=== PATIENT | male | born 1955 | race Caucasian/White ===

== ENCOUNTER 2016-10-12 12:51 | Emergency (ER) | payer BC ==
[~2016-10-12] VITALS: Ht 177.8 cm; Wt 97.0 kg
[~2016-10-12 12:51] MED LIST: FLM4 PO; METH4PAK4 PO; VALA1TAB PO
[2016-10-12 12:55] VITALS: TEMP 36.7; Ht 177.8 cm; Wt 97.0 kg
[2016-10-12] MEDS ORDERED: CLR10 PO (13:00)
[2016-10-12] MEDS ORDERED: ASPI81TA28 PO (13:00)
[2016-10-12] MEDS ORDERED: FLUT0.15 NAE (13:00)
--- NOTE | 2016-10-12 13:25 | DIAGNOSTIC IMAGING REPORT ---
LEFT ELBOW MIN 3 VIEWS ROUTINE CLINICAL HISTORY: felt snap and pain with lifting, suspect tendon rupture COMPARISON: None. DISCUSSION: The bones and joint spaces appear intact. There is no evidence of fracture, dislocation or bony disease. There is no evidence for soft tissue swelling. IMPRESSION: Negative study. Electronically signed by: Tomy George M.D. 10/12/2016 1:24 PM Dictated Date/Time: 10/12/2016 1:23 PM
[2016-10-12] MEDS ORDERED: HYDR-5688 PO (13:52)
--- NOTE | 2016-10-12 13:56 | EMERGENCY ROOM VISIT NOTE ---
ED Visit Note First contact with patient: 12:59 CHIEF COMPLAINT: Elbow pain HISTORY OF PRESENT ILLNESS: This 60-year-old male patient presents to the emergency department complaining of pain in the left elbow that came on suddenly today while he was lifting a heavy box. Patient states the box was heavier than he thought and started to fall he reached out to catch the box and felt a snap in his left elbow with immediate pain. The patient rates their pain as aching and 7/10. The patient has taken nothing for relief of the pain. The patient has not had previous fractures to this elbow. The patient does not have any numbness or tingling. The patient denies any other injuries. REVIEW OF SYSTEMS: A 6 system review of systems was completed with positives and pertinent negatives listed in the HPI. ALLERGIES: See chart MEDICATIONS: See chart PMH: See chart SOCIAL HISTORY: See chart PHYSICAL EXAM: Vital Signs: Reviewed Nurse's notes, vital signs stable. GENERAL : Pleasant and cooperative, in no acute distress, well-developed, well- nourished. SKIN: The skin was without rashes, erythema, edema, warmth, or bruising. Capillary reflex less than 3 seconds. MUSCULOSKELETAL: The patient is holding their elbow in a slightly flexed position. There is tenderness over the anterior and medial aspect of the left elbow. There is tenderness with flexion and extension of the left elbow. There is a palpable deformity and tenderness on the proximal biceps tendon. There is no tenderness of the shoulder , wrist, or hand. The patient is able to give a thumbs up, make an OK sign, and a #3 with their fingers. Radial pulse 2+. NEURO: Patient was alert and oriented to person place and time. Normal sensation to light and sharp touch. Normal associate professor of art strength, normal biceps and triceps strength, 5/5. IMAGING: LEFT ELBOW MIN 3 VIEWS ROUTINE CLINICAL HISTORY: felt snap and pain with lifting, suspect tendon rupture COMPARISON: None. DISCUSSION: The bones and joint spaces appear intact. There is no evidence of fracture, dislocation or bony disease. There is no evidence for soft tissue swelling. IMPRESSION: Negative study. EMERGENCY DEPARTMENT COURSE: I examined the patient. An x-ray of the left elbow was reviewed myself and read by radiology and shows no acute abnormality. He is on history and physical exam, I suspect a distal biceps tendon rupture. The patient was placed in left arm sling under my direction and the position was satisfactory. Neurovascular status was rechecked and intact. The patient was discharged home in stable condition. Patient was instructed to follow up with orthopedics for further management Current/Historical Medications Scheduled Aspirin (Aspirin Ec), 81 MG PO DAILY Fluticasone Propionate (Nasal) (Flonase Allergy Relief), 2 SPRAYS TOMASZ QAM Loratadine (Claritin), 10 MG PO DAILY Scheduled PRN Hydrocodone/Acetaminophen 5MG/325MG (Sumerco 5MG/325MG), 1-2 TABLET PO Q6H PRN for Pain Allergies Coded Allergies: No Known Allergies (Unverified , ANAPHYLAXIS, 10/12/16) Vital Signs Date Time Temp Pulse Resp B/P (MAP) Pulse Ox O2 Delivery O2 Flow Rate FiO2 10/12/16 14:22 67 18 127/82 99 10/12/16 12:55 36.7 57 16 134/79 97 Room Air Departure Information Impression Primary Impression: Rupture of left distal biceps tendon Dispostion Home / Self-Care Condition GOOD Prescriptions Hydrocodone/Acetaminophen 5MG/325MG (Sumerco 5MG/325MG) Tab 1-2 TABLET PO Q6H Y for Pain for 3 Days, #24 TAB For Initial Treatment Prov: Ameena Burns, AUTO SERVICER 10/12/16 Referrals Ayanna Oscar D.O. (PCP) Loi Ayala D.O. Patient Instructions Biceps Tendonitis Distal, My [facility] Additional Instructions You have been treated in the Emergency Department for Elbow Pain. It is suspected that you have a partial tear or rupture of your biceps tendon. You have been prescribed Sumerco to be used for pain control. This is a narcotic medication. You cannot drive or consume alcohol while on this medicine. This medicine should only be used for severe pain that cannot be controlled with over -the-counter pain medicines. For pain control, you can use the following bobl-nbv-vypiuvl medicines (if >12 yo): - Regular strength (325mg/tab) Tylenol (acetaminophen) 2 tabs every 4-6 hours as needed. Do not exceed 10 tablets in a 24 hour period. Avoid taking more than 3 grams (3000 mg) of Tylenol per day. This includes any other sources of acetaminophen you may take on a regular basis. - Regular strength (200 mg/tab) Advil (ibuprofen) 1-2 tabs every 4-6 hours as needed. Do not exceed a dose of 3200 mg per day. If this is a recent injury (<24 hrs), ice can be applied to the area of pain for the first 3 days to help decrease pain and inflammation. You have been provided the number for your Orthopaedic Surgeon. You should call this number as soon as possible to establish a follow-up visit from today's Emergency Department visit. Wear the sling as needed for comfort. You may remove the sling for bathing and sleep, and to do general range of motion exercises to keep the should from getting stiff. Return to the Emergency Department if your current symptoms worsen despite treatment course outlined above, or if you develop any of the following symptoms : intractable pain despite above treatment course or new onset of numbness or tingling of the arm. Problem Qualifiers Primary Impression: Rupture of left distal biceps tendon Encounter type: initial encounter Qualified Codes: S46.212A - Strain of muscle, fascia and tendon of other parts of biceps, left arm, initial encounter
[2016-10-12 14:22] VITALS: BP 127/82; PULSE 67; O2SAT 99
[2016-10-17] MEDS ORDERED: OXYC-57 PO (12:33)
== END 2016-10-12 14:22 | disposition home or self-care (01) ==
LOC: C.EDB 12:52 → C.EDD 14:22
DX: S46.212A Strain of muscle, fascia and tendon of other parts of biceps, left arm, initial encounter (principal); X50.1XXA Overexertion from prolonged static or awkward postures, initial encounter; Z79.82 Long term (current) use of aspirin; Z79.899 Other long term (current) drug therapy

== ENCOUNTER → 2016-10-14 | Outpatient (CLI) | payer BC ==
[~2016-10-14] MED LIST changes: +ASPI81TA28 PO; +CLR10 PO; -FLM4 PO; +FLUT0.15 NAE; +HYDR-5688 PO; -METH4PAK4 PO; +OXYC-57 PO; -VALA1TAB PO
[2016-10-14 13:03] LABS: BASO % 0.7 %; BASO ABS # 0.04 K/uL (0-0.2); COMPLETE YES; EOS % 3.8 %; HEMATOCRIT 42.4 % (42-52); IG% 0.2 %; LYMPH % 22.9 %; LYMPH ABS # 1.28 K/uL (1.2-3.4); MEAN CELL VOLUME 89.3 fL (80-100); MEAN CORPUSCULAR HEMOGLOBIN 30.5 pg (25-34); MEAN CORPUSCULAR HGB CONC 34.2 g/dl (32-36); MEAN PLATELET VOLUME 10.9 fL (7.4-10.4); MONO % 8.1 %; NEUT % 64.3 %; PLATELET COUNT 175 K/uL (130-400); RED BLOOD COUNT 4.75 M/uL (4.7-6.1); WHITE BLOOD COUNT 5.59 K/uL (4.8-10.8)
[2016-10-14 14:17] LABS: BLOOD UREA NITROGEN 17 mg/dl (7-18); BUN/CREATININE RATIO 17.5 (10-20); CALCIUM 8.5 mg/dl (8.5-10.1); CARBON DIOXIDE 29 mmol/L (21-32); CHLORIDE 109 mmol/L (98-107); CREATININE 0.98 mg/dl (0.60-1.40); GLUCOSE 80 mg/dl (70-99); POTASSIUM 4.2 mmol/L (3.5-5.1); SODIUM 144 mmol/L (136-145)
== END | disposition home or self-care (01) ==
LOC: C.LAB 12:01
PROVIDERS: ATTEND Orthopaedic Surgery
DX: S46.212A Strain of muscle, fascia and tendon of other parts of biceps, left arm, initial encounter (principal); X58.XXXA Exposure to other specified factors, initial encounter

== ENCOUNTER → 2016-10-17 | Day surgery (SDC) | payer BC ==
[2016-10-15 07:44] VITALS: Ht 177.8 cm; Wt 95.5 kg
[~2016-10-17] VITALS: Ht 177.8 cm; Wt 95.5 kg
[~2016-10-17] MED LIST changes: +ATROPINE SULFATE 0.1 MG/ML 5ML SYR IV PRN; +CEFAZOLIN 2000 MG/60 ML D5W IV SCH; +DEXAMETHASONE SOD INJ 4 MG/ML VIAL ONE; +FENTANYL CITRATE INJ 50 MCG/1 ML 2 ML VIAL ONE; -HYDR-5688 PO; +KETOROLAC TROMETHAMINE 30 MG/ML VIAL IV. PRN; +LABETALOL HCL IV 5 MG/ML 20ML IV PRN; +LACTATED RINGER'S 1000ML 1,000 ML IV SCH; +LIDOCAINE HCL 2% 2 ML VIAL (20MG/ML) ONE; +MIDAZOLAM HCL 1 MG/ML 2ML VIAL ONE; +ONDANSETRON INJ 2 MG/ML 2 ML VIAL IV PRN; +ONDANSETRON INJ 2 MG/ML 2 ML VIAL ONE; +OXYCODONE/ACETAMINOPHEN 5-325 TAB PO PRN; +PROPOFOL IV EMULSION 10 MG/ML 20 ML VIAL IV ONE; +SODIUM CHLORIDE 0.9% 1000ML 1,000 ML IV SCH
--- NOTE | 2016-10-17 09:39 | History & Physical Bridge - [place] ---
H&P Re-Evaluation Bridge Note: I have examined the patient, reviewed the History & Physical and in the interval since the performance of the History & Physical I have noted the following changes of clinical significance: No changes noted
[2016-10-17] MEDS: BUPIVACAINE/EPINEPHRINE 0.25% 1:200,000 30 ML VIAL ONE ×2 (12:06→12:10)
--- NOTE | 2016-10-17 12:36 | Discharge Instructions-SurgCtr ---
Discharge Instructions Date of Service Oct 17, 2016. Visit Reason for Visit: Left Distal Tendon Biceps Brachii Tear Discharge Discharge Diagnosis / Problem: SAME ABOVE Discharge Goals Goal(s): Decrease discomfort, Improve function Medications Stopped Medications Name(s): HELD ASPIRIN FOR TWO DAYS Restart Stopped Medication(s): MAY RESTART 10/17/2016 Activity Recommendations Activity Limitations: as noted below Lifting Limitations: until after follow-up appointment Exercise/Sports Limitations: until after follow-up appointment Driving or Machine Use: WHEN OFF OF PAIN MEDICATION AND CAN PUT 2 HANDS ON THE WHEEL Anesthesia . Post Anesthesia Instructions: If you have had General Anesthesia or IV Sedation: * Do not drive today. * Resume driving when surgeon permits. * Do not make important decisions or sign legal documents today. * Call surgeon for: 1. Temperature elevations greater than 101 degrees F. 2. Uncontrollable pain. 3. Excessive bleeding. 4. Persistent nausea and vomiting. 5. Medication intolerance (nausea, vomiting or rash). * For nausea and vomiting use only clear liquids such as: tea, soda, bouillon until nausea subsides, then gradually increase diet as tolerated. * If you have any concerns or questions, call your surgeon's office. If physician is unavailable and it is an emergency, call 911 or go to the nearest emergency room. . Instructions / Follow-Up Instructions / Follow-Up MEDICATIONS: * Resume previous medications unless instructed otherwise by your surgeon. * Always take pain medication on a full stomach or with food to avoid upset stomach. * Do not drink alcohol or drive while taking narcotics. * Ibuprofen or Tylenol may be taken if narcotic not needed. SPECIAL CARE INSTRUCTIONS: __ None _X_ Keep extremity elevated and iced x 48 hours; apply ice 20-30 minutes 8-10 times/day. May remove at night. __ Sling __24 hrs/day __ Remove at night __ Shoulder Immobilizer __ 24 hrs/day __ Remove at night _X_ Dressing __ Maintain until seen in office, may shower with plastic over site _X_ Remove dressings in 5 DAYS. MAY SHOWER SOONER IF COVERED WITH PLASTIC BAG _X_ Cover incisions with band-aids after showering __ Do not remove steri-strips Call physician if chills or temperature rises above 102 degrees or pain unrelieved by prescribed pain medications at . . Diet Recommendations Home Diet: no limitations Fluid Restriction: None Procedures Procedures Performed: Left Distal Biceps Tendon Repair Pending Studies Studies pending at discharge: no Work Instructions Return To Work: after follow-up Lifting Limitations: NO LIFTING WITH LEFT ARM Medical Emergencies . Who to Call and When: Medical Emergencies: If at any time you feel your situation is an emergency, please call 911 immediately. . Non-Emergent Contact Non-Emergency issues call your: Primary Care Provider Call Non-Emergent contact if: you have a fever, temperature is above 101.5 . . "Provider Documentation" section prepared by Jack Perez. .
[2016-10-17] MEDS: FENTANYL CITRATE INJ 50 MCG/1 ML 2 ML VIAL IV PRN ×2 (13:01→13:09)
[2016-10-17 13:45] VITALS: TEMP 36.1
[2016-10-17 14:04] VITALS: BP 114/73; O2SAT 97
--- NOTE | 2016-10-17 14:10 | Anesthesia Progress Nt - [facility] ---
Anesthesia Post Op Note Date & Time Oct 17, 2016 at 14:10 Vital Signs Pain Intensity: 0 Vital Signs Past 12 Hours Date Time Temp Pulse Resp B/P (MAP) Pulse Ox O2 Delivery O2 Flow Rate FiO2 10/17/16 14:04 54 16 114/73 (87) 97 Room Air 10/17/16 13:45 36.1 50 14 128/79 (95) 99 Room Air 10/17/16 13:28 53 24 97 10/17/16 13:28 52 24 10/17/16 13:25 128/74 10/17/16 13:25 36.4 51 20 128/74 97 Room Air 10/17/16 13:23 50 9 95 10/17/16 13:23 50 9 10/17/16 13:20 122/79 10/17/16 13:18 54 9 10/17/16 13:18 48 9 98 10/17/16 13:15 127/76 10/17/16 13:13 48 7 99 10/17/16 13:13 48 7 10/17/16 13:10 119/77 10/17/16 13:08 52 18 10/17/16 13:08 53 18 95 10/17/16 13:05 128/79 10/17/16 13:03 47 9 10/17/16 13:03 46 9 97 10/17/16 13:01 127/78 10/17/16 12:58 49 99 10/17/16 12:58 49 10/17/16 12:55 139/79 10/17/16 12:53 50 14 100 10/17/16 12:53 50 14 10/17/16 12:51 139/80 10/17/16 12:48 49 14 10/17/16 12:48 49 14 100 10/17/16 12:45 130/80 10/17/16 12:43 49 14 100 10/17/16 12:43 48 14 10/17/16 12:40 121/73 10/17/16 12:38 50 15 99 10/17/16 12:38 50 15 10/17/16 12:35 123/80 10/17/16 12:33 36.2 53 12 122/76 98 Diffusion Mask 6 10/17/16 12:33 67 122/76 97 10/17/16 12:33 67 10/17/16 09:36 36.8 56 102/62 (75) 94 Room Air Notes Mental Status: alert / awake / arousable, participated in evaluation Pt Amnestic to Procedure: Yes Nausea / Vomiting: adequately controlled Pain: adequately controlled Airway Patency, RR, SpO2: stable & adequate BP & HR: stable & adequate Hydration State: stable & adequate Anesthetic Complications: no major complications apparent
--- NOTE | 2016-10-17 15:39 | [facility] Post Operative Brief Note ---
Immediate Operative Summary Operative Date Oct 17, 2016. Pre-Operative Diagnosis Left Distal Biceps Tendon Rupture Post-Operative Diagnosis Same Procedure(s) Performed Left Distal Biceps Tendon Repair Surgeon Dr. Neil Padded Products Inspector Trimmer Surgeon(s) Aneesh Perez PA-C Estimated Blood Loss 20 mL Findings as above Specimens None Complication(s) None Disposition Recovery Room / PACU
--- NOTE | 2016-10-17 19:26 | OPERATIVE REPORT ---
DATE OF OPERATION: 10/17/2016 PREOPERATIVE DIAGNOSIS: Left distal biceps tendon rupture. POSTOPERATIVE DIAGNOSIS: Same. PROCEDURE: Open left distal biceps tenodesis. SURGEON: Dr. Luke Neil. MAPPING SPECIALIST: Todd Perez PA-C, whose assistance was necessary for positioning the arm and helping with instrumentation. ANESTHESIA: General. COMPLICATIONS: None. CONDITION: Stable to PACU. INDICATIONS: Loi is a pleasant 60-year-old male, who presented to my office with an acute traumatic rupture of his left distal biceps tendon. It was obvious by clinical examination. He elected to undergo an open biceps tenodesis. DESCRIPTION OF THE PROCEDURE: On 10/17/2016, he arrived at [facility] for the above procedure. He was seen in the preoperative holding area and the operative extremity was identified and signed. He was given a preoperative antibiotic, taken back to the operating room, laid on the table in supine position and put under general anesthesia. The left elbow was then prepped and draped in sterile fashion. Time-out was done. The patient and operative extremity was properly identified. A longitudinal incision was made between the flexor pronator mass and the brachioradialis. Dissection was taken down to the tuberosity with care not to disrupt any of the neurovascular structures. The tuberosity was easily identified. The distal biceps tendon was also easily identified and pulled directly out of the wound. The tendon was then whipstitched with an Arthrex fiber loop. The tendon measured to be 7 mm. A biceps pin was then placed in the center of the radial tuberosity and advanced to the posterior cortex. A 7.5 mm hole was drilled in the biceps tuberosity. An Arthrex biceps button was then attached to the tails of the fiber loop and passed out of the posterior cortex and flipped. A tension slide technique was then used to deliver the tendon into the 7.5 mm hole. A single 7 x 10 mm Bio-interference screw was then placed on the radial side which pushed the tendon ulnarly. The tails of the sutures were then tied. The wound was then irrigated. Hemostasis was controlled and the wound was then closed with 3-0 Vicryl suture and 4-0 nylon in a mattress fashion. He was placed in a soft dressing, extubated, transferred to a litter and taken to the postanesthesia care unit in stable condition. He tolerated the procedure well. I attest to the content of the Intraoperative Record and any orders documented therein. Any exception s are noted below.
== END | disposition home or self-care (01) ==
LOC: X.SURG 09:26
PROVIDERS: ATTEND Orthopaedic Surgery
DX: S46.202A Unspecified injury of muscle, fascia and tendon of other parts of biceps, left arm, initial encounter (principal); X58.XXXA Exposure to other specified factors, initial encounter; Z90.89 Acquired absence of other organs; Z96.653 Presence of artificial knee joint, bilateral; Z98.890 Other specified postprocedural states